=== PATIENT | male | born 1980 | race Caucasian/White ===

== ENCOUNTER → 2019-06-25 11:13 | Day surgery (SDC) | payer OTHER ==
[~2019-06-25 11:13] MED LIST: Acetaminophen IV 1GM/100ML * 100 ML ONE; Buffered Lidocaine 1% SYRIN* 1 ML/SYRINGE INTRADERM ONE; Dexamethasone TAB* 4 MG ONE; Dexamethasone TAB* 4 MG PO ONE; DiMENhydriNATE IV* 50 MG/ML VIAL IV PUSH PRN; DiMENhydriNATE IV* 50 MG/ML VIAL ONE; Famotidine IV* 10 MG/ML 2 ML (20 mg) IV ONE; Famotidine IV* 10 MG/ML 2 ML (20 mg) ONE; KETAMINE HCL* 50 MG/ML 10 ML VIAL ONE; Ketorolac INJ* 30 MG/ML 1 ML VIAL ONE; Labetalol IV* 5 MG/ML 20 ML VIAL ONE; Lactated Ringers 1000 ML Bag* 1,000 ML IV SCH; Levalbuterol 0.63MG/3ML NEB* UNIT OF USE INH ONE; Lidocaine 2% PF * 5 ML VIAL ONE; Midazolam* 1 MG/ML 5 ML VIAL (5 MG) ONE; Morphine 4 MG/ML VIAL (1 ml) 4 MG/ML VIAL IV PRN; Naloxone* 0.4 MG/ML 1 ML VIAL IV PRN; Ondansetron ODT TAB* 4 MG ONE; Ondansetron ODT TAB* 4 MG PO ONE; PROCHLORPERAZINE INJ 5 MG/ML 2 ML VIAL IV PRN; PROCHLORPERAZINE INJ 5 MG/ML 2 ML VIAL ONE; Propofol* 10 MG/ML 20 ML BTL ONE; Scopolamine 1.5 mg* PATCH TRANSDERM PRN; Scopolamine PATCH Remove* 1 NOTE MISC PATCH OFF ONE; ceFAZolin 2 GM PREMIX in ORs 2 GM/50 ML BAG ONE; fentaNYL* 50 MCG/ML 2 ML VIAL (100 MCG VIAL) ONE; hydrALAZINE IV* 20 MG/ML VIAL ONE; oxyCODONE TAB* 5 MG TAB ONE; oxyCODONE TAB* 5 MG TAB PO PRN
[2019-06-25] MEDS: fentaNYL* 50 MCG/ML 2 ML VIAL (100 MCG VIAL) IV PRN ×4 (17:56→18:19)
[2019-06-25 19:51] VITALS: BP 137/76
--- NOTE | 2019-06-27 01:44 | OP ---
OPERATIVE REPORT: DATE OF OPERATION: 06/25/19 DATE OF : 78 SURGEON: Edmund Osman MD. INSPECTOR CONVEYOR LINE: JOHANNE Real. A physician pastry assistant was required for the length of the procedure for assistance with patient positioning, retraction, instrumentation, and closure. ANESTHESIOLOGIST: Dr. Tiburcio Andujar. ANESTHESIA: General anesthesia. PRE-OP DIAGNOSIS: Left distal biceps tendon rupture. POST-OP DIAGNOSIS: Left open distal biceps tendon rupture. OPERATIVE PROCEDURE: Open repair left distal biceps tendon. ANTIBIOTICS: Ancef 2 g IV. IV FLUIDS: See anesthesia note. UPDL-OX-RMWR TIME: 78 minutes. TOURNIQUET TIME: 83 minutes at tourniquet 250 mmHg, left upper arm. SPECIMEN: None. IMPLANTS: Arthrex distal biceps tenodesis set metal button and 7 x 10 mm biocomposite interference screw. It isn't an implant, but I utilized Floseal 5 cc in this procedure. ESTIMATED BLOOD LOSS: Minimal. COMPLICATIONS: None. INDICATIONS FOR PROCEDURE: The patient is a 39-year-old man, who injured his left elbow on 06/01/19, which was 3 weeks and 3 days preoperatively. I saw him in clinic on 06/17/19 and had him approved for the earliest available surgical date. We discussed risks and potential complications of surgery, including those related to nerve or blood vessel injury. 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 Discussed nonoperative and operative treatment of this injury and the patient wanted to go forward with surgery. DESCRIPTION OF PROCEDURE: In the preoperative holding, the patient signed a written consent. Operative extremity was marked in preoperative holding. The patient was taken back to the operating room and kept on stretcher. Hand table was applied. The patient was sedated and intubated. Given the shortness of the patient's left upper arm, I chose a sterile tourniquet. The patient's left upper extremity was prepped and draped. Sterile tourniquet was applied. Formal surgical time-out was performed. I made a 4-cm longitudinal skin incision about the proximal forearm. For improved visualization, I later extended that to 6 cm right up to the elbow flexion crease. Dissected down carefully through subcutaneous tissue. Identified vasculature about the antecubital area and proximal forearm. Dissected carefully about this vasculature. Eventually dissected down to the radius. Identified Holden radial recurrent vessels. I tied those off with Vicryl 3-0 sutures. I cut between these sutures. Soon after this maneuver was performed, there was some bleeding about the level of the more ulnar side of the leash of Holden. Difficult to find the exact point to cauterize with bipolar. I applied some pressure with Ray-Alexa and the bleeding stopped. Identified radial tuberosity, bicipital tuberosity. Much scar tissue in place about it that was removed with curette and rongeur. Next dissected more proximally. Biceps tendon was identified. There was a layer of scar tissue about it. I carefully dissected around the biceps tendon. The scar tissue was adherent in all directions and I carefully dissected it away from its scar tissue using sharp spreading scissors or a [place]. Obtained the biceps tendon. I removed the distal 1 cm but that was quite bulbus and inflamed. I placed at least 4 stitches in it with FiberLoop suture and loaded the biceps button. It should be noted that the lateral antebrachial cutaneous nerve was identified and I was trying to put a minimum of traction on it during the case, which happens with the retractors placed about the proximal radius. These retractors were stub-nosed and were only placed with the forearm in hyper-supination to protect the PIN nerve. I next prepared the proximal radius. Placed Beath pin. Drilled my tunnel. Irrigation. Threaded the button in the biceps tendon deep and radial to the antecubital vessels. Placed the biceps button and flipped it. Sucked the tendon into the tunnel. Tied the knot with an arthroscopic knot pusher. Then placed my biotenodesis screw and tied another knot. This repair was done with the forearm in approximately 45 degrees of flexion. Irrigation. Mini C-arm imaging was used to confirm good placement of button and good tunnel position. I was happy with the images. At this point, there was no active bleeding. There had not been for some time, over 30-40 minutes. However, given the greater than typical bleeding earlier in the case, I asked for some Floseal and applied that to the area in the wound where there had some bleeding, likely from one side of the radial recurrent vessels, leash of Holden. I next closed the wound with buried simple stitches using Vicryl 3-0 suture in the subcutaneous layer and a running stitch in the skin using nylon 3-0 suture. Eliceo, 4x4s, sterile Webril. The posterior splint followed by a sugar-tong forearm splint with plaster applied and overwrapped with an Kenneth bandage. These were placed with the elbow 90 degrees flexed and supinated forearm. A simple sling was placed on the patient. He was awakened, extubated, and transferred to the PACU. DISPOSITION: The patient was discharged back to his halfway when medically stable. He will leave the splint in place. He will present approximately 2 weeks postoperatively to clinic for wound check and removal of stitches. At that point, we will either keep him in a splint, give him a one-step or give him an elbow brace dependent on the available options for a prisoner given their constraints socially. [id number]/[facility] #: [id number] [place]
== END | disposition home or self-care (01) ==
LOC: OR 11:13
PROVIDERS: ATTEND Orthopaedic Surgery
DX: S46.112A Strain of muscle, fascia and tendon of long head of biceps, left arm, initial encounter (principal); J45.909 Unspecified asthma, uncomplicated; I10 Essential (primary) hypertension; X50.0XXA Overexertion from strenuous movement or load, initial encounter; Y93.B3 Activity, free weights; Y92.148 Other place in prison as the place of occurrence of the external cause; Z79.51 Long term (current) use of inhaled steroids
CPT/HCPCS: A9270-GY; C1713; J0360; J0690; J0780; J1240; J1885; J2250; J2704; J3010; J8540